=== PATIENT | female | born 2000 | race Two or more races ===

== ENCOUNTER 2021-09-10 14:23 | Inpatient (IN) | payer MEDICAID, OTHER ==
[~2021-09-10] VITALS: Ht 172.7 cm; Wt 69.0 kg
[2021-09-10] MEDS ORDERED: HYDROmorphone HCL 2 MG/ML VL IV ONE ×2 (15:15→20:00)
[2021-09-10] MEDS ORDERED: SODIUM CHLORIDE 0.9% 500 ML IV ONE (15:15)
[2021-09-10] MEDS ORDERED: ONDANSETRON HCL 4 MG/2 ML VIAL IV ONE ×2 (15:15→20:15)
[2021-09-10 15:18] LABS: Basophils # (auto) 0.2 10 ^3/uL (0-0.2); Basophils % (auto) 2.3 % (0.0-2.0); Eosinophils # (auto) 0 10 ^3/uL (0-0.8); Eosinophils % (auto) 0.2 % (0.0-7.0); Hematocrit 36.9 % (36.0-46.0); Hemoglobin 11.7 g/dL (12.2-16.2); Mean Corpuscular Hemoglobin 27.8 pg (28.0-32.0); Mean Corpuscular Hgb Conc. 31.8 g/dL (32.0-36.0); Mean Corpuscular Volume 87.3 fL (80.0-100.0); Monocytes # (auto) 0.6 10 ^3/uL (0-1.3); Monocytes % (auto) 7.1 % (0.0-12.0); Neutrophils # (auto) 6.3 10 ^3/uL (1.6-8.6); Neutrophils % (auto) 78.4 % (37.0-80.0); Red Blood Cells 4.23 10^6/uL (4.0-5.20); Red Cell Distribution Width 17.4 % (11.8-14.3)
[2021-09-10 15:51] LABS: Albumin 2.6 g/dL (3.4-5.0)
[2021-09-10 15:53] LABS: BUN/Creatinine Ratio 10.7
[2021-09-10 15:54] LABS: Lactic Acid w/Reflex 3.1 mmol/L (0.4-2.0)
[2021-09-10 15:56] LABS: Bilirubin, Total 0.3 mg/dL (0.2-1.0); Total Protein 7.4 g/dL (6.4-8.2)
[2021-09-10 16:09] LABS: Potassium 2.5 mmol/L (3.5-5.1)
[2021-09-10] MEDS ORDERED: POTASSIUM CHL 20 Meq TABLET PO ONE (21:00)
[2021-09-10] MEDS ORDERED: NITROGLYCERIN 0.4 MG SL TAB SL PRN (21:45)
[2021-09-10] MEDS ORDERED: HEPARIN SODIUM (PORCINE) 5000 UNITS/ML 1ML VIAL IV ONE (21:45)
[2021-09-10] MEDS ORDERED: DOCUSATE SOD 100 MG CAP PO PRN (21:45)
[2021-09-10] MEDS ORDERED: MORPHINE SULFATE INJECTION 2 MG/ML SYRG IV PRN (21:45)
[2021-09-11] VITALS (7 sets, daily range): BP systolic 135–150; BP diastolic 85–102
[2021-09-11] MEDS: HEPARIN DRIP/D5W 100UNITS/ML 250 ML IV SCH ×4 (00:30→22:53)
[2021-09-11] MEDS: MORPHINE SULFATE 4 MG/ML SYR/VIAL IV PRN ×6 (01:16→22:34)
[2021-09-11] MEDS: POTASSIUM CHL 20MEQ/100ML 100 ML IV SCH ×2 (02:35→05:56)
[2021-09-11] MEDS: HYDROcodone-ACET 5/325MG TAB PO PRN ×3 (04:06→17:02)
[2021-09-11] MEDS ORDERED: POTASSIUM CHL 20MEQ/100ML 100 ML IV ONE (05:14)
[2021-09-11] MEDS: ONDANSETRON HCL 4 MG/2 ML VIAL IV PRN ×4 (05:21→22:45)
[2021-09-11 07:56] LABS: Basophils # (auto) 0 10 ^3/uL (0-0.2); Basophils % (auto) 0.3 % (0.0-2.0); Eosinophils # (auto) 0 10 ^3/uL (0-0.8); Eosinophils % (auto) 0.3 % (0.0-7.0); Hematocrit 33.5 % (36.0-46.0); Hemoglobin 10.9 g/dL (12.2-16.2); Lymphocytes # (auto) 1.2 10 ^3/uL (0.4-5.4); Lymphocytes % (auto) 14.8 % (10.0-50.0); Mean Corpuscular Hemoglobin 28.5 pg (28.0-32.0); Mean Corpuscular Hgb Conc. 32.4 g/dL (32.0-36.0); Mean Corpuscular Volume 88.1 fL (80.0-100.0); Monocytes # (auto) 0.8 10 ^3/uL (0-1.3); Monocytes % (auto) 9.7 % (0.0-12.0); Neutrophils # (auto) 5.9 10 ^3/uL (1.6-8.6); Neutrophils % (auto) 74.9 % (37.0-80.0); Nucleated Red Blood Cells % 0.1 %; Red Blood Cells 3.81 10^6/uL (4.0-5.20); Red Cell Distribution Width 17.2 % (11.8-14.3); White Blood Cell 7.8 10^3/uL (4.4-10.8)
[2021-09-11 08:02] LABS: Calcium 8.5 mg/dL (8.5-10.1); Potassium 3.4 mmol/L (3.5-5.1)
[2021-09-11 08:34] LABS: INR 1.05 (0.9-1.15)
[2021-09-11 08:37] LABS: Partial Thromboplastin Time 83.1 sec (23.6-33.0)
[2021-09-11] MEDS ORDERED: BACL20TA PO (11:50)
[2021-09-11 15:31] LABS: INR 1.02 (0.9-1.15); Partial Thromboplastin Time 39.4 sec (23.6-33.0)
[2021-09-11] MEDS: diphenhdrAMINE HCL 25 MG CAP PO PRN (22:46)
[2021-09-11 23:53] LABS: INR 1.06 (0.9-1.15)
[2021-09-11 23:57] LABS: Partial Thromboplastin Time 90.7 sec (23.6-33.0)
[2021-09-12] MEDS: HEPARIN DRIP/D5W 100UNITS/ML 250 ML IV SCH ×5 (01:05→18:10)
[2021-09-12] MEDS: MORPHINE SULFATE 4 MG/ML SYR/VIAL IV PRN ×4 (03:47→21:00)
[2021-09-12] MEDS: ONDANSETRON HCL 4 MG/2 ML VIAL IV PRN ×3 (04:03→20:57)
[2021-09-12 05:00] VITALS: BP 140/86
[2021-09-12 07:43] LABS: INR 1.06 (0.9-1.15)
[2021-09-12] MEDS: HYDROcodone-ACET 5/325MG TAB PO PRN ×3 (07:50→19:05)
[2021-09-12] MEDS ORDERED: HEPARIN SODIUM (PORCINE) 5000 UNITS/ML 1ML VIAL IV STA (08:18)
[2021-09-12 09:00] VITALS: BP 130/82
[2021-09-12 13:00] VITALS: BP 147/90
[2021-09-12 16:52] VITALS: BP 146/100
[2021-09-12 22:00] VITALS: BP 125/86
[2021-09-13] MEDS: HYDROcodone-ACET 5/325MG TAB PO PRN ×5 (00:03→21:52)
[2021-09-13] MEDS: MORPHINE SULFATE 4 MG/ML SYR/VIAL IV PRN ×4 (01:12→19:52)
[2021-09-13] MEDS: ONDANSETRON HCL 4 MG/2 ML VIAL IV PRN ×4 (01:12→20:44)
[2021-09-13 01:31] LABS: INR 1.1 (0.9-1.15)
[2021-09-13 01:36] LABS: Partial Thromboplastin Time 75.4 sec (23.6-33.0)
[2021-09-13] MEDS: diphenhdrAMINE HCL 25 MG CAP PO PRN ×2 (02:35→22:23)
[2021-09-13 05:00] VITALS: BP 135/93
[2021-09-13 07:34] LABS: INR 1.1 (0.9-1.15); Partial Thromboplastin Time 65.4 sec (23.6-33.0)
[2021-09-13 09:00] VITALS: BP 127/91
[2021-09-13 11:24] LABS: BUN/Creatinine Ratio 10.3; Calcium 9.5 mg/dL (8.5-10.1); Potassium 3.4 mmol/L (3.5-5.1)
[2021-09-13 11:26] LABS: Basophils # (auto) 0 10 ^3/uL (0-0.2); Basophils % (auto) 0.3 % (0.0-2.0); Eosinophils # (auto) 0.1 10 ^3/uL (0-0.8); Eosinophils % (auto) 0.8 % (0.0-7.0); Hematocrit 37.5 % (36.0-46.0); Hemoglobin 12.5 g/dL (12.2-16.2); Lymphocytes # (auto) 1.1 10 ^3/uL (0.4-5.4); Lymphocytes % (auto) 15.6 % (10.0-50.0); Mean Corpuscular Hemoglobin 28.9 pg (28.0-32.0); Mean Corpuscular Hgb Conc. 33.3 g/dL (32.0-36.0); Monocytes # (auto) 0.9 10 ^3/uL (0-1.3); Monocytes % (auto) 12.1 % (0.0-12.0); Neutrophils % (auto) 71.2 % (37.0-80.0); Nucleated Red Blood Cells % 0.2 %; Red Blood Cells 4.31 10^6/uL (4.0-5.20); White Blood Cell 7.1 10^3/uL (4.4-10.8)
[2021-09-13] MEDS ORDERED: POTASSIUM EFFERVESENT TAB 25 MEQ PO ONE (12:00)
[2021-09-13] MEDS: CLINDAMYCIN 600MG IV 50 ML IV SCH ×2 (12:09→18:37)
[2021-09-13 13:06] VITALS: BP 111/54
[2021-09-13 17:00] VITALS: BP 132/97
[2021-09-13 22:00] VITALS: BP 138/91
[2021-09-13 22:50] LABS: INR 1.08 (0.9-1.15); Partial Thromboplastin Time 67.2 sec (23.6-33.0)
[2021-09-14] MEDS: ONDANSETRON HCL 4 MG/2 ML VIAL IV PRN ×5 (00:18→21:17)
[2021-09-14] MEDS: MORPHINE SULFATE 4 MG/ML SYR/VIAL IV PRN ×5 (00:18→21:16)
[2021-09-14] MEDS: CLINDAMYCIN 600MG IV 50 ML IV SCH ×3 (02:26→18:05)
[2021-09-14 05:00] VITALS: BP 134/85
[2021-09-14 06:17] LABS: INR 1.11 (0.9-1.15); Partial Thromboplastin Time 60.9 sec (23.6-33.0)
[2021-09-14] MEDS: HYDROcodone-ACET 5/325MG TAB PO PRN ×4 (06:32→23:45)
[2021-09-14 08:30] VITALS: BP 123/54
[2021-09-14] MEDS ORDERED: IOHEXOL 300 MG/ML 100ML BOTTLE IJ ONE (12:28)
[2021-09-14 12:30] VITALS: BP 128/86
[2021-09-14 17:00] VITALS: BP 118/54
[2021-09-14] MEDS: HEPARIN DRIP/D5W 100UNITS/ML 250 ML IV SCH (18:06)
[2021-09-14 20:20] VITALS: BP 129/84
[2021-09-15] MEDS: MORPHINE SULFATE 4 MG/ML SYR/VIAL IV PRN ×4 (01:49→17:26)
[2021-09-15] MEDS: CLINDAMYCIN 600MG IV 50 ML IV SCH ×3 (02:50→17:26)
[2021-09-15] MEDS: ONDANSETRON HCL 4 MG/2 ML VIAL IV PRN ×2 (03:15→08:22)
[2021-09-15] MEDS: HYDROcodone-ACET 5/325MG TAB PO PRN ×3 (04:38→19:23)
[2021-09-15 05:05] VITALS: BP 128/86
[2021-09-15 07:35] LABS: INR 1.14 (0.9-1.15)
[2021-09-15 07:56] LABS: Partial Thromboplastin Time 71.4 sec (23.6-33.0)
[2021-09-15 09:00] VITALS: BP 117/74
[2021-09-15 13:08] VITALS: BP 122/82
[2021-09-15 17:05] VITALS: BP 145/95
[2021-09-15] MEDS: HEPARIN DRIP/D5W 100UNITS/ML 250 ML IV SCH (18:08)
[2021-09-15 18:27] VITALS: BP 145/95
== END 2021-09-15 20:10 | disposition home health service (06) | DRG 197 ==
LOC: ER 14:23 → TELE 21:41 → TELE-EAST 23:25 → TELE-CENTR 09-15 08:43
PROVIDERS: ADMIT Hospitalist; ATTEND Hospitalist
DX: I82.431 Acute embolism and thrombosis of right popliteal vein (principal); I82.411 Acute embolism and thrombosis of right femoral vein; I10 Essential (primary) hypertension; F12.90 Cannabis use, unspecified, uncomplicated; B95.62 Methicillin resistant Staphylococcus aureus infection as the cause of diseases classified elsewhere; M21.371 Foot drop, right foot; E87.6 Hypokalemia; Z20.822 Contact with and (suspected) exposure to COVID-19; Z74.01 Bed confinement status; Z86.718 Personal history of other venous thrombosis and embolism; Z82.49 Family history of ischemic heart disease and other diseases of the circulatory system
CPT/HCPCS: 36415; 72194; 73706; 80048; 80053; 83605; 85025; 85610; 85730; 87040; 87077; 87186; 87205; 87426; 93971; 96361; 96374; 96375; 96376; 97110; 97116; 97530; G0378; J2405; J3480; J3490

== ENCOUNTER 2025-06-28 09:17 | Emergency (ER) | payer MEDICAID ==
[~2025-06-28] VITALS: Ht 167.6 cm; Wt 64.0 kg
[~2025-06-28 09:17] MED LIST: BACL20TA PO
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
[2025-06-28] MEDS: HYDROcodone-ACET 5/325MG TAB PO ONE (10:47)
--- NOTE | 2025-06-28 11:06 | DVH ---
CLINICAL INDICATION: pain; INJURY TECHNIQUE: 2 radiographic views of the right knee were obtained. Comparison: None FINDINGS/IMPRESSION: There is no evidence of acute fracture or dislocation. Postsurgical changes from [id number] right amputation. Cortical lucencies in the distal fibula ma y be related to postsurgical changes. If concern for osteomyelitis, consider further evaluation with MRI.
[2025-06-28] MEDS ORDERED: HYDR-4902 PO (11:22)
[2025-06-28 11:25] VITALS: BP 128/81; PULSE 71; RESP 18; TEMP 98.2; O2SAT 100
== END 2025-06-28 11:36 | disposition home or self-care (01) ==
LOC: ER 09:17
DX: S80.01XA Contusion of right knee, initial encounter (principal); G89.29 Other chronic pain; M54.50 Low back pain, unspecified; I10 Essential (primary) hypertension; Z98.890 Other specified postprocedural states; Z88.5 Allergy status to narcotic agent; W22.8XXA Striking against or struck by other objects, initial encounter; Y93.89 Activity, other specified; Y92.89 Other specified places as the place of occurrence of the external cause; Y99.8 Other external cause status
CPT/HCPCS: 73560